=== PATIENT | female | born 1965 | race Caucasian/White ===

== ENCOUNTER 2018-01-04 20:06 | Emergency (ER) | payer OTHER ==
[~2018-01-04] VITALS: Ht 152.4 cm; Wt 142.9 kg
[~2018-01-04 20:06] MED LIST: BG MC; GLU500 PO; LAC PO; LEVAQUIN750 MG PO
[2018-01-04 20:31] VITALS: Ht 152.4 cm; Wt 142.9 kg
[2018-01-04 22:54] VITALS: BP 140/80
== END 2018-01-04 22:54 | disposition home or self-care (01) ==
LOC: ED 20:06
DX: J18.9 Pneumonia, unspecified organism (principal); J06.9 Acute upper respiratory infection, unspecified
CPT/HCPCS: J7613

== ENCOUNTER 2018-02-25 18:23 | Emergency (ER) | payer OTHER ==
[~2018-02-25] VITALS: Ht 152.4 cm; Wt 143.4 kg
[2018-02-25 18:39] VITALS: Ht 152.4 cm; Wt 143.4 kg
[2018-02-25 19:35] VITALS: BP 138/69
== END 2018-02-25 19:35 | disposition home or self-care (01) ==
LOC: ED 18:23
DX: J40 Bronchitis, not specified as acute or chronic (principal); E11.9 Type 2 diabetes mellitus without complications; Z90.710 Acquired absence of both cervix and uterus